=== PATIENT | male | born 1960 | race Caucasian/White ===

== ENCOUNTER → 2023-11-11 10:09 | Outpatient (REF) | payer BC, SELFPAY | LOC: HWRAD 10:09 | PROVIDERS: ATTENDING PHYSICIAN Nurse Practitioner | DX: M25.511 Pain in right shoulder (principal) | CPT/HCPCS: 73030 ==

== ENCOUNTER → 2024-10-20 06:11 | Outpatient (REF) | payer BC, SELFPAY ==
[2024-10-20 09:41] LABS: % Basophils 0.3 % (0-2); % Eosinophils 5.5 % (0-6); % Immature Granulocytes 0.6 % (0-0.5); % Lymphocytes 31.7 % (20.5-51.1); % Monocytes 11.7 % (1.7-9.3); % Neutrophils 50.2 % (42.2-75.2); Absolute Eosinophils 0.4 10^3/uL (0-0.7); Absolute Lymphocytes 2.1 10^3/uL (1.2-3.4); Absolute Monocytes 0.8 10^3/uL (0.1-0.6); Absolute Neutrophils 3.3 10^3/uL (1.4-6.5); Hematocrit 46.4 % (39.0-52.0); Hemoglobin 16.2 g/dL (13.0-18.0); Mean Corp Hgb Conc. 34.9 g/dL (33.0-37.0); Mean Corpuscular Hgb 30.5 pg (27.0-31.0); Mean Corpuscular Volume 87.4 fL (80.0-94.0); Mean Platelet Volume 10.4 fL (7.4-10.4); Nucleated Red Blood Cells % 0 % (-); Platelet Count 232 10^3/uL (130-400); Red Blood Cell Count 5.31 10^6/uL (4.70-6.10); Red Cell Dist. Width 11.8 % (11.5-14.5); White Blood Cell Count 6.5 10^3/uL (4.8-10.8)
[2024-10-20 09:47] LABS: ALT (SGPT) 45 U/L (0-50); AST (SGOT) 33 U/L (17-59); Albumin 4.3 g/dl (3.5-5.0); Alkaline Phosphatase 64 U/L (38-126); Blood Urea Nitrogen 21 mg/dl (9-20); Calcium 9.5 mg/dl (8.4-10.2); Carbon Dioxide 29 mmol/L (22-30); Chloride 101 mmol/L (98-107); Glucose 103 mg/dl (70-99); HDL Cholesterol 38 mg/dl; LDL Cholesterol, Calculated 95 mg/dl; Potassium 4.4 mmol/L (3.5-5.1); Sodium 137 mmol/L (135-145); Total Bilirubin 1.1 mg/dl (0.2-1.3); Total Cholesterol 151 mg/dl (50-199); Total Protein 6.7 g/dl (6.3-8.2); Triglyceride 92 mg/dl (10-149); Very Low Density Lipoprotein 18 mg/dl (0-30); eGFR > 60.00
[2024-10-20 10:24] LABS: PSA, Total - Screen 2.01 ng/ml (0.0-4.0); TSH Reflex To Free T4 2.77 uIU/ml (0.47-4.68)
== END ==
LOC: HWLAB 06:11
DX: R97.20 Elevated prostate specific antigen [PSA] (principal); Z00.01 Encounter for general adult medical examination with abnormal findings
CPT/HCPCS: 36415; 80053; 80061; 84443; 85025; G0103

== ENCOUNTER → 2025-01-20 10:47 | Outpatient (REF) | payer BC, SELFPAY ==
[2025-01-20 23:55] LABS: IgA 242 mg/dl (70-400)
[2025-01-23 05:12] LABS: Endomysial IgA Antibody Titer <1:10 (<1:10)
== END ==
LOC: REG 10:47
PROVIDERS: ATTENDING PHYSICIAN Internal Medicine Gastroenterology
DX: R19.4 Change in bowel habit (principal)
CPT/HCPCS: 36415; 82784; 83516; 86231

== ENCOUNTER 2025-02-03 06:22 | Day surgery (SDC) | payer BC, SELFPAY | END 2025-02-04 10:04 | disposition home or self-care (01) | LOC: GI 06:22 | PROVIDERS: ATTENDING PHYSICIAN Internal Medicine Gastroenterology | DX: Z12.11 Encounter for screening for malignant neoplasm of colon (principal); K64.8 Other hemorrhoids; K57.30 Diverticulosis of large intestine without perforation or abscess without bleeding; K63.89 Other specified diseases of intestine; K22.89 Other specified disease of esophagus; K31.7 Polyp of stomach and duodenum; K29.70 Gastritis, unspecified, without bleeding; K31.89 Other diseases of stomach and duodenum; K63.5 Polyp of colon; K29.50 Unspecified chronic gastritis without bleeding; Q40.8 Other specified congenital malformations of upper alimentary tract; Z85.038 Personal history of other malignant neoplasm of large intestine; Z15.09 Genetic susceptibility to other malignant neoplasm | CPT/HCPCS: 45380; 43239; 88305; 88342 ==